=== PATIENT | female | born 1950 | race Caucasian/White ===

== ENCOUNTER 2017-08-29 11:43 | Emergency (ER) | payer MEDICARE ==
[~2017-08-29] VITALS: Ht 157.5 cm; Wt 61.2 kg
[~2017-08-29 11:43] MED LIST: ASPIRIN EC81 MG PO; COQ-1030 MG PO; CYCLOBENZAPRINE10 MG PO; LISINOPRIL10 MG PO; METFORMIN HCL500 MG PO; TOPROL XL25 MG PO; VOLTAREN100 GM TOP
== END 2017-08-29 12:17 | disposition home or self-care (01) ==
LOC: ED 11:43
DX: M79.604 Pain in right leg (principal)

== ENCOUNTER 2017-09-02 07:06 | Emergency (ER) | payer MEDICARE, OTHER ==
[~2017-09-02] VITALS: Ht 157.5 cm; Wt 61.2 kg
[2017-09-02] MEDS ORDERED: MOBIC15 MG PO (07:18)
[2017-09-02] MEDS ORDERED: COUMADIN4 MG PO (07:19)
[2017-09-02] MEDS ORDERED: MORPHINE SULFAT15 MG PO (07:20)
[2017-09-02] MEDS ORDERED: ENDOCET 10-3251 EACH PO (07:20)
[2017-09-02] MEDS ORDERED: VISTARIL25 MG PO (07:21)
== END 2017-09-02 10:28 | disposition home or self-care (01) ==
LOC: ED 07:06
DX: S80.01XA Contusion of right knee, initial encounter (principal); D68.9 Coagulation defect, unspecified; T45.515A Adverse effect of anticoagulants, initial encounter; X58.XXXA Exposure to other specified factors, initial encounter; Z87.891 Personal history of nicotine dependence; Z88.0 Allergy status to penicillin; Z79.82 Long term (current) use of aspirin; Z79.899 Other long term (current) drug therapy; Z79.01 Long term (current) use of anticoagulants
CPT/HCPCS: 36415; 70450; 85610; 99284

== ENCOUNTER 2019-11-23 09:57 | Emergency (ER) | payer MEDICARE ==
[~2019-11-23] VITALS: Ht 157.5 cm; Wt 61.2 kg
--- OUTSIDE RECORDS SUMMARY | ~2019-11-23 | XMS | Encounter Summary ---
Demographics + + + | Address | [address] | | | [place] [address] | + + + | Home Phone | | + + + | Preferred Language | Unknown | + + + | Marital Status | | + + + | Mandaen Affiliation | 1041 | + + + | Race | White | + + + | Ethnic Group | Not or | + + + Author + + + | Author | [facility] | | | and [place] | + + + | Organization | [facility] | | | and [place] | + + + | Address | Unknown | + + + | Phone | Unavailable | + + + Support + + + + + | Name | Relationship | Address | Phone | + + + + + | Chato Rousseau | ECON | [address] | | | | | [place] | | | | | [address] | | + + + + + | Tegan Lim | ECON | [place] | | | | | [address] | | + + + + + Care Team Providers + +------+ + | Care Automotive Glass Installer Name | Role | Phone | + +------+ + | Lauren Moe | PCP | | | PA | | | + +------+ + Reason for Visit + + + | Reason | Comments | + + + | Procedure | Neurotrax | + + + Encounter Details +--------+ + + + + | Date | Type | Department | Care Team | Description | +--------+ + + + + | 01/27/ | Procedure | [facility] | Felton Allen MD | Early onset | | 2019 | visit | [facility] | [address] | Alzheimer's disease | | | | CLINIC [address] | [place] | with behavioral | | | | [address] [place], | [address] | disturbance ([facility]); | | | | [place] [address] | | Memory change | | | | [phone] | | | +--------+ + + + + Social History + +-------+ +--------+ + | Tobacco Use | Types | Packs/Day | Years | Date | | | | | Used | | + +-------+ +--------+ + | Former Smoker | | 0.25 | | Quit: 12/08/2016 | + +-------+ +--------+ + + +---+---+---+ | Smokeless Tobacco: | | | | | Never Used | | | | + +---+---+---+ + + | Comments: in college | + + + + +---------+ + | Alcohol Use | Drinks/Week | oz/Week | Comments | + + +---------+ + | Never | | | Alcoholic | | | | | Drinks/day: rarely | + + +---------+ + + +--------+ + | Physical Activity | Answer | Date Recorded | + +--------+ + | On average, how many days per week do you | 2 days | 01/08/2019 | | engage in moderate to strenuous exercise | | | | (like walking fast, running, jogging, | | | | dancing, swimming, biking, or other | | | | activities that cause a light or heavy | | | | sweat)? | | | + +--------+ + | On average, how many minutes do you engage | 10 min | 01/08/2019 | | in exercise at this level? | | | + +--------+ + + + + + | Stress | Answer | Date Recorded | + + + + | Do you feel stress - tense, restless, | Rather much | 01/08/2019 | | nervous, or anxious, or unable to sleep at | | | | night because your mind is troubled all the | | | | time - these days? | | | + + + + + + + | Sex Assigned at | Date Recorded | | | | + + + | Not on file | | + + + documented as of this encounter Procedure Notes Michael Anaya, CC RIBBON WEAVER - 01/27/2019 10:30 AM PSTAssociated Order(s): NEUROTRAX: COMPUTER IZED NEUROCOGNATIVE TESTINGProcedure(s): NEUROTRAX: COMPUTERIZED NEUROCOGNATIVE TESTINGPre-P rocedure Diagnose(s): Early onset Alzheimer's disease with behavioral disturbance (HCC); Mem ory changeOrdering Provider Dr. Felton Allen Supervising Provider Dr. Felton Allen Interpreting Provider Dr. Felton Allen Testing performed by Michael Anaya CMA Start Time 1009 Stop Time 1109 Duration of Test 60 minutes Ann Rousseau is a 68 y.o. patient who presents for Neurotrax testing. Patient tolerated test with some difficulty. Patient had issues following instructions rega rdless of how I presented them. Neurotrax results given to Dr. Allen for review and follow up. Physician Interpretation: Abnormal Neurotrax testing with Global Cognitive Score of 70.8. Abnormal NeuroTrax Testing showing deficits in: Memory with score of 50 was Abnormal Executive Function with score of 74.9 was Abnormal Attention with score of 68.5 was Abnormal Information Processing Speed with score of 72.9 was Abnormal Visual Spatial Processing with score of 76 was Abnormal Verbal Function with score of 52.6 was Abnormal Motor Skills with score of 100.7was Normal Results demonstrate: Abnormal Neurotrax testing demonstrated moderate diffuse cognitive dysfunction. Clinical c orrelation is indicated. A total time of 15 minutes were spent evaluating and interpreting this test. Treatment plan is as follows: Advised to keep reading newspapers, magazines, perform word find exercises and to perform computer applications such as 7Summits and [employer] games online. Advised to take vitamin E and B complexes. In addition patient admits to history of depres andre with advised counseling and antidepressants. Patient was contacted on January 28, 2019ing the results. Patient/Family communicated unde rstanding of the results and have no further questions. Thank you for allowing us to participate in the care of your patient. Sincerely, Dr. Felton Allen 01/27/19 Neurologist documented in this enc ounter Plan of Treatment +--------+---------+ + + + | Date | Type | Specialty | Care Team | Description | +--------+---------+ + + + | 01/04/ | Office | Neurology | Rosa Maria, | | | 2020 | Visit | | [place], [employer] [employer] [facility] [address] | | | | | [address] [facility], | | | | | | [place] [address] | | | | | | [phone] | | | | | | | | +--------+---------+ + + + documented as of this encounter Procedures + +--------+ + + + | Procedure Name | Priori | Date/Time | Associated Diagnosis | Comments | | | ty | | | | + +--------+ + + + | NEUROTRAX: | Today | 01/27/2019 | Early onset | Results for this | | COMPUTERIZED | | 10:30 AM | Alzheimer's disease | procedure are in the | | NEUROCOGNATIVE | | PST | with behavioral | results section. | | TESTING | | | disturbance (HCC) | | | | | | Memory change | | + +--------+ + + + documented in this encounter Results NEUROTRAX: COMPUTERIZED NEUROCOGNATIVE TESTING (01/27/2019 10:30 AM PST) + + + | Narrative | Performed At | + + + | Felton Allen MD 2019 1:47 PM Ordering Provider | | | Felton Allen Supervising Provider Dr. Felton Allen Interpreting | | | Provider Dr. Felton Allen Testing performed by Michael Anaya CMA | | | Start Time 1009 Stop Time 1109 Duration of Test 60 minutes | | | Ann Rousseau is a 68 y.o. patient who presents for | | | Neurotrax testing. Patient tolerated test with some difficulty. | | | Patient had issues following instructions regardless of how I | | | presented them. Neurotrax results given to Dr. Allen for review and | | | follow up. Physician Interpretation: Abnormal Neurotrax testing | | | with Global Cognitive Score of 70.8. Abnormal NeuroTrax Testing | | | showing deficits in: Memory with score of 50 was Abnormal | | | Executive Function with score of 74.9 was Abnormal Attention with | | | score of 68.5 was Abnormal Information Processing Speed with score of | | | 72.9 was Abnormal Visual Spatial Processing with score of 76 was | | | Abnormal Verbal Function with score of 52.6 was Abnormal Motor | | | Skills with score of 100.7was Normal Results demonstrate: | | | Abnormal Neurotrax testing demonstrated moderate diffuse cognitive | | | dysfunction. Clinical correlation is indicated. A total time of | | | 15 minutes were spent evaluating and interpreting this test. | | | Treatment plan is as follows: Advised to keep reading newspapers, | | | magazines, perform word find exercises and to perform computer | | | applications such as 7Summits and [employer] online. Advised to | | | take vitamin E and B complexes. In addition patient admits to | | | history of depression with advised counseling and antidepressants. | | | Patient was contacted on January 28, 2019ing the results. | | | Patient/Family communicated understanding of the results and have no | | | further questions. Thank you for allowing us to participate in the | | | care of your patient. Sincerely, Dr. Felton Allen 01/27/19 | | | Neurologist | | + + + documented in this encounter Visit Diagnoses + + | Diagnosis | + + | Early onset Alzheimer's disease with behavioral disturbance (HCC) | + + | Memory change Memory loss | + + documented in this encounter"
--- OUTSIDE RECORDS SUMMARY | ~2019-11-23 | XMS | Encounter Summary ---
Demographics + + + | Address | [address] | | | [place] [address] | + + + | Home Phone | | + + + | Preferred Language | Unknown | + + + | Marital Status | | + + + | Mu-Ism Affiliation | 1041 | + + + | Race | White | + + + | Ethnic Group | Not or | + + + Author + + + | Author | [facility] | | | and [place] | + + + | Organization | [facility] | | | and [...] [place] | | | | | [address] | | + + + + + | Tegan Lim | ECON | [place] | | | | | [address] | | + + + + + Care Team Providers + +------+ + | Care Vice President And Portfolio Manager Name | Role | Phone | + +------+ + | Lauren Moe | PCP | | | PA | | | + +------+ + Reason for Visit + +--------+ + | Reason | Onset | Comments | | | Date | | + +--------+ + | Results, Imaging | 01/28/ | | | | 2019 | | + +--------+ + Encounter Details +--------+ + + + + | Date | Type | Department | Care Team | Description | +--------+ + + + + | 01/28/ | Telephone | [facility] | Felton Allen MD | Results, Imaging | | 2019 | | [facility] | [address] | | | | | CLIN[facility] [address] | [place] | | | | | [address] [place], | [address] | | | | | [place] [address] | | | | | | [phone] | | | +--------+ + + + [...] + + documented as of this encounter Miscellaneous Notes Telephone Encounter - Tiffanie Luis - 02/10/2019 11:38 AM PSTPts daughter Tegan is ca lling back for MRI results. She stated she did receive a call for neurotrax results.Electron ically signed by Tiffanie Luis at 02/10/2019 11:39 AM PSTTelephone Encounter - Michael Anaya CC CMA - 02/10/2019 11:29 AM PSTCalled and spoke with Daughter Tegan and provided results from neurotrax testing. Advised her to have her mom continue doing mind exercises w ith reading, and to try mind games like lumosity. Also advised her to have pt take vitamin B complex and vitamin E. Michael Anaya CMA elephone Encou Michael Aguilera CC CMA - 02/10/2019 11:06 AM PSTCalled and left voicemail for Tegan to call back. Michael Anaya CMA elephone Tiffanie Hong - 02/09/2019 12:41 PM PSTErin called back for her moms results. elephone Encounter - Michael Anaya CC CMA - 2019 3:37 PM PSTCalled and left voicemail for Daughter Tor john to call back. Michael Anaya CMA elephone Erick Schmitt - 2019 2:56 PM PSTPlease call the pt's daughter Tegan vela nd give her the results. The pt gets very confused and didn't really understand them. Tegan: [phone] signed by Erick Canseco at 2019 2:58 PM PS TTelephone Encounter - Felton Allen MD - 2019 10:11 AM PSTCalled and gave MRI brain results and advised to keep reading newspapers, magazines, perform word find exercisesElect ronically signed by Felton Allen MD at 2019 10:15 AM PSTdocumented in this encounter Plan of Treatment +--------+---------+ + + + | Date | Type | Specialty | Care Team | Description | +--------+---------+ + + + | 01/04/ | Office | Neurology | Rosa Maria, | | | 2020 | Visit | | [place] [address] | [address] [place], | | | | | | [place] [address] | | | | | | [phone] | | | | | | | | +--------+---------+ + + + documented as of this encounter Visit Diagnoses Not on filedocumented in this encounter"
--- OUTSIDE RECORDS SUMMARY | ~2019-11-23 | XMS | Encounter Summary ---
Demographics + + + | Address | [address] | | | [place] [address] | + + + | Home Phone | | + + + | Preferred Language | Unknown | + + + | Marital Status | | + + + | Christian Affiliation | 1041 | + + + | Race | White | + + + | Ethnic Group | Not or | + + + Author + + + | Author | [facility] | | | and [place] | + + + | Organization | [facility] | | [...] [place] | | | | | [address] | | + + + + + | Tegan Lim | ECON | [place] | | | | | [address] | | + + + + + Care Team Providers + +------+ + | Care Bottling Machine Operator Name | Role | Phone | + +------+ + | Lauren Moe | PCP | | | PA | | | + +------+ + Reason for Visit + +--------+ + | Reason | Onset | Comments | | | Date | | + +--------+ + | Results, Imaging | 02/11/ | | | | 2019 | | + +--------+ + Encounter Details +--------+ + + + + | Date | Type | Department | Care Team | Description | +--------+ + + + + | 02/11/ | Telephone | [facility] | Felton Allen MD | Results, Imaging | | 2019 | | [facility] | [address] | | | | | CLIN[facility] [address] | [place] | | | | | [address] [place], | [address] | | | | | [place] [address] | | | | | | [phone] | | | +--------+ + + + [...] this encounter Miscellaneous Notes Telephone Encounter - Felton Allen MD - 02/11/2019 8:40 AM PSTalled Tegan and could not leave voicemail, however, I did not see in Demographic form ?? documented in this encounter Plan of Treatment +--------+---------+ + + + | Date | Type | Specialty | Care Team | Description | +--------+---------+ + + + | 01/04/ | Office | Neurology | Rosa Maria, | | | 2019 | Visit | | [place] [address] | [address] [place], | | | | | | [place] [address] | | | | | | [phone] | | | | | | | | +--------+---------+ + + + documented as of this encounter Visit Diagnoses Not on filedocumented in this encounter"
--- OUTSIDE RECORDS SUMMARY | ~2019-11-23 | XMS | Clinical Summary ---
Demographics + + + | Address | [address] | | | [place] [address] | + + + | Home Phone | | + + + | Preferred Language | Unknown | + + + | Marital Status | | + + + | Taoist Affiliation | 1041 | + + + | Race | White | + + + | Ethnic Group | Not or | + + + Author + + + | Author | [facility] | | | and [place] | + + + | Organization | [facility] | | | and [...] [place] | | | | | [address] | | + + + + + | Tegan Lim | ECON | [place] | | | | | [address] | | + + + + + Care Team Providers + +------+ + | Care Admission Specialist Name | Role | Phone | + +------+ + | Lauren Moe | PCP | | | PA | | | + +------+ + Allergies No Known Allergies Medications + + + +---------+------+------+-------+ | Medication | Sig | Dispensed | Refills | Star | End | Statu | | | | | | t | Date | s | | | | | | Date | | | + + + +---------+------+------+-------+ | aspirin 325 mg | Take 325 mg by mouth | | 0 | 01/0 | | Activ | | tablet | 2 (two) times | | | 4/20 | | e | | | daily. | | | 14 | | | + + + +---------+------+------+-------+ | VITAMIN D, | Take by mouth. | | 0 | | | Activ | | CHOLECALCIFEROL, PO | | | | | | e | + + + +---------+------+------+-------+ | atorvaSTATin | Take 20 mg by mouth | | 0 | | | Activ | | (LIPITOR) 20 mg | nightly. | | | | | e | | tablet | | | | | | | + + + +---------+------+------+-------+ | metoprolol | Take 50 mg by mouth | | 0 | 04/2 | | Activ | | succinate | Daily. | | | 03/16 | | e | | (TOPROL-XL) 50 mg 24 | | | | 20 | | | | hr tablet | | | | | | | + + + +---------+------+------+-------+ | mirtazapine | TAKE 1 TABLET BY | | 0 | 07/26 | | Activ | | (REMERON) 30 mg | MOUTH ONCE DAILY | | | 10/14 | | e | | tablet | (REPLACE 15 MG) | | | 20 | | | + + + +---------+------+------+-------+ | donepezil | Take 1 tablet by | 30 | 5 | / | | Activ | | (ARICEPT) 10 MG | mouth nightly. | tablet | | 04/16 | | e | | tabletIndications: | | | | 20 | | | | Early onset | | | | | | | | Alzheimer's disease | | | | | | | | with behavioral | | | | | | | | disturbance (HCC) | | | | | | | + + + +---------+------+------+-------+ Active Problems + + + | Problem | Noted Date | + + + | Early onset Alzheimer's disease with behavioral disturbance | 09/16/2019 | + + + + + | Overview: Current Treatment: Aricept 01/08/19 MMSE: | | 01/27/19 MRI of Brain: No acute intracranial process. | | Global volume loss. Moderate white matter changes. Differential | | would include chronic small vessel ischemia, demyelinating | | disease and vasculitis 01/27/19 Neuro Trax: Global Cognitive | | Score of 70.8. Abnormal NeuroTrax Testing showing deficits in: | | Memory with score of 50 was Abnormal Executive Function with | | score of 74.9 was Abnormal Attention with score of 68.5 was | | Abnormal Information Processing Speed with score of 72.9 was | | Abnormal Visual Spatial Processing with score of 76 was Abnormal | | Verbal Function with score of 52.6 was Abnormal Motor Skills with | | score of 100.7was Normal 01/27/19 EEG: Normal awake and | | drowsy EEG. 09/16/19 MMSE: | | 09/16/19 MMSE: | + + + + + | Old myocardial infarction | 01/08/2019 | + + + + + | Overview: HUMBERTO x 2 - 06/30/07 - Luis guo // | | 11/25/07 (ISR in RCA) | + + + + + | Osteoarthritis of both knees | 01/08/2019 | + + + | Coronary atherosclerosis of holy cross coronary artery | 02/28/2013 | + + + | Dizziness and giddiness | 02/28/2013 | + + + | Other and unspecified hyperlipidemia | 02/28/2013 | + + + | Encounter for long-term (current) use of other medications | 02/28/2013 | + + + | Coronary atherosclerosis of holy cross coronary artery | 02/28/2013 | + + + | Other and unspecified hyperlipidemia | 02/28/2013 | + + + | S/P drug eluting coronary stent placement | 06/30/2007 | + + + + + | Overview: primary PCI for NSTEMI, 3.0x23 Janna ELOISA in Ramus | | Intermedius | + + + + + | S/P drug eluting coronary stent placement | 06/30/2007 | + + + + + | Overview: primary PCI for NSTEMI, 3.0x23 Cypher ELOISA in Ramus | | Intermedius | + + + +---+ | Presence of drug-eluting stent in right coronary artery | | + +---+ + + | Overview: 11/25/07 - for NSTEMI, ISR: 3.0x20 Taxus ELOISA; | | 07/08/07 - 3 overlapping Cypher ELOISA (3.0x13, 2.5x28, 2.5x28) | + + + +---+ | Old myocardial infarction | | + +---+ + + | Overview: HUMBERTO x 2 - 06/30/07 - Luis guo // | | 11/25/07 (ISR in RCA) | + + + +---+ | Osteoarthritis of both knees | | + +---+ Encounters +--------+---------+ + + + | Date | Type | Specialty | Care Team | Description | +--------+---------+ + + + | 07/22/ | Office | Neurology | Rosa Maria, | Early onset | | 2020 | Visit | | [place] | Alzheimer's disease | | | | | | with behavioral | | | | | | disturbance (HCC) | +--------+---------+ + + + from Last 3 Months Family History Patient is adopted + + +------+ + | Medical History | Relation | Name | Comments | + + +------+ + | Drug abuse | Brother | | | + + +------+ + + +------+ + + | Relation | Name | Status | Comments | + +------+ + + | Brother | | | | + +------+ + + | Brother | | | | + +------+ + + | Daughter | | Alive | | + +------+ + + | Father | | | | + +------+ + + | Mother | | | | + +------+ + + | Sister | | | | + +------+ + + | Sister | | | | + +------+ + + | Sister | | Alive | | + +------+ + + | Son | | Alive | | + +------+ + + Social History + +-------+ +--------+ + | Tobacco Use | Types | Packs/Day | Years | Date | | | | | Used | | + +-------+ +--------+ + | Former Smoker | | 0.25 | 20 | Quit: 12/08/2016 | + +-------+ +--------+ [...] on file | | + + + Last Filed Vital Signs + + + + + | Vital Sign | Reading | Time Taken | Comments | + + + + + | Blood Pressure | 174/95 | 09/16/2019 8:34 AM | | | | | PDT | | + + + + + | Pulse | 65 | 09/16/2019 8:34 AM | | | | | PDT | | + + + + + | Temperature | 36.5 C (97.7 F) | 09/16/2019 8:34 AM | | | | | PDT | | + + + + + | Respiratory Rate | 16 | 09/16/2019 8:34 AM | | | | | PDT | | + + + + + | Oxygen Saturation | 99% | 09/16/2019 8:34 AM | | | | | PDT | | + + + + + | Inhaled Oxygen | - | - | | | Concentration | | | | + + + + + | Weight | 67.6 kg (149 lb) | 09/16/2019 8:34 AM | | | | | PDT | | + + + + + | Height | 157.5 cm (5' 2") | 09/16/2019 8:34 AM | | | | | PDT | | + + + + + | Body Mass Index | 27.25 | 09/16/2019 8:34 AM | | | | | PDT | | + + + + + Plan of Treatment +--------+---------+ + + + | Date | Type | Specialty | Care Team | Description | +--------+---------+ + + + | 01/04/ | Office | Neurology | Rosa Maria, | | | 2020 | Visit | | [place], [facility] [address] | | | | | [address] [facility], | | | | | | [place] [address] | | | | | | [phone] | | | | | | | | +--------+---------+ + + + + + + + + | Health Maintenance | Due Date | Last | Comments | | | | Done | | + + + + + | Hepatitis C | | | | | Screening | 1 | | | + + + + + | Vaccine: | | | | | Dtap/Tdap/Td (1 - | 0 | | | | Tdap) | | | | + + + + + | Colorectal Cancer | | | | | Screening | 1 | | | | (Colonoscopy) | | | | + + + + + | Vaccine: Zoster (1 | | | | | of 2) | 1 | | | + + + + + | Breast Cancer | | | | | Screening | 6 | | | + + + + + | Vaccine: | | | | | Pneumococcal 65+ (1 | 6 | | | | of 1 - PPSV23) | | | | + + + + + | Adult Annual | | | | | Wellness Visit | 9 | | | + + + + + | Statin Therapy | | | | | (optimal intensity) | 9 | | | + + + + + | Vaccine: Influenza | | 01/15/20 | | | (#1) | 0 | 17, | | | | | 02/13/20 | | | | | 09 | | + + + + + Results Not on filefrom Last 3 Months Insurance + +--------+ +--------+ +---------+--------+ | Payer | Benefi | Subscriber | Effect | Phone | Address | Type | | | t Plan | ID | vinayak | | | | | | / | | Dates | | | | | | Group | | | | | | + +--------+ +--------+ +---------+--------+ | MEDICARE | MEDICA | [id number] | | [phone] | | Medica | | | RE | | 016-Pr | 5 | | re | | | PART A | | esent | | | | | | AND B | | | | | | + +--------+ +--------+ +---------+--------+ | AARP | AARP | [id number] | 02/25/19 | [phone] | | Indemn | | | MDCR | | 19-Pre | 0 | | ity | | | SUPPL | | sent | | | | + +--------+ +--------+ +---------+--------+ + +--------+ +--------+ + + | Guarantor Name | Accoun | Relation to | Date | Phone | Billing Address | | | t Type | Patient | of | | | | | | | | | | + +--------+ +--------+ + + | Ann Rousseau | Person | Self [birth year] | [address] | | [place] | al/Fam | | 1949 | [phone] | [place] | | | [place] | | | [address] (Home) | [address] | + +--------+ +--------+ + + Advance Directives + + + + + | Type | Date Recorded | Patient | Explanation | | | | Soup Mixer | | + + + + + | Power of | | | | | Seat Cover Cutter | | | | + + + + + | Advance | | | | | Directive | | | | + + + + +
--- OUTSIDE RECORDS SUMMARY | ~2019-11-23 | XMS | Encounter Summary ---
Demographics + + + | Address | [address] | | | [place] [address] | + + + | Home Phone | | + + + | Preferred Language | Unknown | + + + | Marital Status | | + + + | Anabaptist Affiliation | 1041 | + + + | Race | White | + + + | Ethnic Group | Not or | + + + Author + + + | Author | [facility] | | | and [place] | + + + | Organization | [facility] | | | [...] [place] | | | | | [address] | | + + + + + | Tegan Lim | ECON | [place] | | | | | [address] | | + + + + + Care Team Providers + +------+ + | Care Thermal Cutter Helper Name | Role | Phone | + +------+ + | Lauren Moe | PCP | | | PA | | | + +------+ + Encounter Details +--------+ + + + + | Date | Type | Department | Care Team | Description | +--------+ + + + + | 07/18/ | Orders Only | [facility] | Conversion | | | 2018 | | CONVERSION [address] | Transaction, | | | | | [address] | Provider Unknown | | | | | [place], [place] | [phone] | | | | | [address] | | | | | | [phone] | | | +--------+ + + + + Social History + +-------+ +--------+------+ | Tobacco Use | Types | Packs/Day | Years | Date | | | | | Used | | + +-------+ +--------+------+ | Former Smoker | | 0.25 | | | + +-------+ +--------+------+ + + | Comments: in college | + + + + + | Sex Assigned at | Date Recorded | | | | + + + | Not on file | | + + + documented as of this encounter Plan of Treatment +--------+---------+ + + + | Date | Type | Specialty | Care Team | Description | +--------+---------+ + + + | 01/04/ | Office | Neurology | Rosa Maria, | | | 2020 | Visit | | [address] [address] [place], | | | | | | [place] [address] | | | | | | [phone] | | | | | | | | +--------+---------+ + + + documented as of this encounter Visit Diagnoses Not on filedocumented in this encounter"
--- OUTSIDE RECORDS SUMMARY | ~2019-11-23 | XMS | Encounter Summary ---
Demographics + + + | Address | [address] | | | [place] [address] | + + + | Home Phone | | + + + | Preferred Language | Unknown | + + + | Marital Status | | + + + | Gnosticist Affiliation | 1041 | + + + | Race | White | + + + | Ethnic Group | Not or | + + + Author + + + | Author | [facility] | | | and [place] | + + + | Organization | [facility] | | | [...] [place] | | | | | [address] | | + + + + + | Tegan Lim | ECON | [place] | | | | | [address] | | + + + + + Care Team Providers + +------+ + | Care Link Knitting Machine Operator Name | Role | Phone | + +------+ + | Lauren Moe | PCP | | | PA | | | + +------+ + Encounter Details +--------+ + + + + | Date | Type | Department | Care Team | Description | +--------+ + + + + | 02/28/ | Orders Only | [facility] | Conversion | | | 2013 | | CONVERSION DEP [address] | Transaction, | | | | | [address] | Provider Unknown | | | | | [place], [place] | [phone] | | | | | [address] | | | | | | [phone] | | | +--------+ + + + + Social History + +-------+ +--------+------+ | Tobacco Use | Types | Packs/Day | Years | Date | | | | | Used | | + +-------+ +--------+------+ | Never Assessed | | | | | + +-------+ +--------+------+ + + + | Sex Assigned at [...] | | | | | | [place] [address] | | | | | | [phone] | | | | | | | | +--------+---------+ + + + documented as of this encounter Visit Diagnoses Not on filedocumented in this encounter"
--- OUTSIDE RECORDS SUMMARY | ~2019-11-23 | XMS | Encounter Summary ---
Demographics + + + | Address | [address] | | | [place] [address] | + + + | Home Phone | | + + + | Preferred Language | Unknown | + + + | Marital Status | | + + + | Scientology Affiliation | 1041 | + + + | Race | White | + + + | Ethnic Group | Not or | + + + Author + + + | Author | [facility] | | | and [place] | + + + | Organization | [facility] | [...] [place] | | | | | [address] | | + + + + + | Tegan Lim | ECON | [place] | | | | | [address] | | + + + + + Care Team Providers + +------+ + | Care Sap Bw Consultant Name | Role | Phone | + +------+ + | Lauren Moe | PCP | | | PA | | | + +------+ + Encounter Details +--------+ + + + + | Date | Type | Department | Care Team | Description | +--------+ + + + + | 01/08/ | Orders Only | [facility] | Felton Allen MD | Dementia with | | 2019 | | HOSPITAL NEUROLOGY | [address] | behavioral | | | | CLINIC [address] | [place], [place] | disturbance, | | | | [address] [place], | [address] | unspecified dementia | | | | [place] [address] | | type (HCC) (Primary | | | | [phone] | | Dx) | +--------+ + + + + Social [...] | | 2019 | Visit | | [place], MOLECULAR GENETICIST [address] | | | | | | [address] [facility] [place], | | | | | | [place] [address] | | | | | | [phone] | | | | | | | | +--------+---------+ + + + + +------+--------+ + + | Name | Type | Priori | Associated Diagnoses | Order Schedule | | | | ty | | | + +------+--------+ + + | Basic Metabolic | Lab | Routin | Dementia with | 1 Occurrences | | Panel | | e | behavioral | starting 01/08/2019 | | | | | disturbance, | until 01/09/2020 | | | | | unspecified dementia | | | | | | type (HCC) | | + +------+--------+ + + documented as of this encounter Procedures + +--------+ + + + | Procedure Name | Priori | Date/Time | Associated Diagnosis | Comments | | | ty | | | | + +--------+ + + + | BASIC METABOLIC | Routin | 01/26/2019 | | Results for this | | PANEL | e | 11:03 AM | | procedure are in the | | | | PST | | results section. | + +--------+ + + + documented in this encounter Results Basic Metabolic Panel (01/26/2019 11:03 AM PST) + + + + + + | Component | Value | Ref Range | Performed | Pathologist | | | | | At | Signature | + + + + + + | Sodium | 143 | 132 - 143 | REFERENCE | | | | | | LAB | | | | | | [facility] | | | | | | [facility] | | + + + + + + | Potassium | 4.0 | 3.6 - 5.1 | REFERENCE | | | | | | LAB | | | | | | [facility] | | | | | | [facility] | | + + + + + + | Chloride | 109 | 95 - 112 | REFERENCE | | | | | | LAB | | | | | | [facility] | | | | | | [facility] | | + + + + + + | Carbon | 27 | 19 - 31 | REFERENCE | | | dioxide | | | LAB | | | | | | [facility] | | | | | | [facility] | | + + + + + + | Anion Gap | 11.0 | 7 - 21 | REFERENCE | | | | | | LAB | | | | | | [facility] | | | | | | [facility] | | + + + + + + | Glucose | 121 (H) | 70 - 100 | REFERENCE | | | | | | LAB | | | | | | [facility] | | | | | | [facility] | | + + + + + + | Calcium | 9.4 | 8.5 - 10.3 | REFERENCE | | | | | | LAB | | | | | | [facility] | | | | | | [facility] | | + + + + + + | BUN | 18 | 6 - 23 | REFERENCE | | | | | | LAB | | | | | | [facility] | | | | | | [facility] | | + + + + + + | Creatinine | 0.82 | 0.70 - 1.25 | REFERENCE | | | | | | LAB | | | | | | [facility] | | | | | | [facility] | | + + + + + + | GFR | 70 | | REFERENCE | | | ESTIMATE | | | LAB | | | (REF) | | | [facility] | | | | | | [facility] | | + + + + + + | BUN/Creatin | 22.0Comment: | 6.0 - 28.6 | REFERENCE | | | ine Ratio | ESTIMATED GFR Reference | | LAB | | | | Range:GFR = Less than | | [facility] - | | | | 60: Chronic Kidney | | [facility] | | | | Disease, if found over a | | | | | | 3 month period.GFR = | | | | | | Less than 15: Kidney | | | | | | Failure.For | | | | | | Americans, multiply the | | | | | | calculated GFR by | | | | | | 1.21.GFR calculation is | | | | | | not valid for patients | | | | | | under age 18 years.For | | | | | | patients over age 70 | | | | | | please interpret results | | | | | | with caution as results | | | | | | have not been validated | | | | | | for this calculation | | | | | | method Please Note: | | | | | | Calcium reference range | | | | | | change as of 09/12/2017. | | | | + + + + + + + + | Specimen | + + | | + + + + + | Narrative | Performed At | + + + | Testing Performed at: [facility] CLIA: [id number] - [address] | REFERENCE LAB | | [place] [address] | [facility] | | | [facility] | + + + + + + + + | Performing | Address | City/State/Zipcode | Phone Number | | Organization | | | | + + + + + | REFERENCE LAB | [address] [facility] | [place] | [phone] | | [facility] | | [address] | | + + + + + documented in this encounter Visit Diagnoses + + | Diagnosis | + + | Dementia with behavioral disturbance, unspecified dementia type (HCC) - Primary | + + documented in this encounter"
--- OUTSIDE RECORDS SUMMARY | ~2019-11-23 | XMS | Encounter Summary ---
Demographics + + + | Address | [address] | | | [place] [address] | + + + | Home Phone | | + + + | Preferred Language | Unknown | + + + | Marital Status | | + + + | Scientology Affiliation | 1041 | + + + | Race | White | + + + | Ethnic Group | Not or | + + + Author + + + | Author | [facility] | | | and [place] | + + + | Organization | [facility] | | | and [place] | + + + | Address | Unknown | + + + | Phone | Unavailable | + + + Support + + + + + | Name | Relationship | Address | Phone | + + + + + | Chato Rousseau | ECON | [address] | | | | | [place] | | | | | [address] | | + + + + + | Tegan Lim | ECON | [place] | | | | | [address] | | + + + + + Care Team Providers + +------+ + | Care Tractor Trailer Mechanic Name | Role | Phone | + +------+ + | Lauren Moe | PCP | | | PA | | | + +------+ + Encounter Details +--------+ + + + + | Date | Type | Department | Care Team | Description | +--------+ + + + + | 01/27/ | Hospital | [facility] | Felton Allen MD | Early onset | | 2019 | Encounter | HOSPITAL RESPIRATORY | [address] | Alzheimer's disease | | | | THERAPY [address] | [place] | with behavioral | | | | [place] | [address] | disturbance (HCC); | | | | [address] | | Memory change; | | | | [phone] | | Dizziness | +--------+ + + + + Social [...] + + documented as of this encounter Medications at Time of Discharge + + + +---------+ + + | Medication | Sig | Dispensed | Refills | Start | End Date | | | | | | Date | | + + + +---------+ + + | aspirin 325 mg | Take 325 mg by mouth | | 0 | 02/28/19 | | | tablet | 2 (two) times | | | 14 | | | | daily. | | | | | + + + +---------+ + + | atorvaSTATin | Take 20 mg by mouth | | 0 | | | | (LIPITOR) 20 mg | nightly. | | | | | | tablet | | | | | | + + + +---------+ + + | VITAMIN D, | Take by mouth. | | 0 | | | | CHOLECALCIFEROL, PO | | | | | | + + + +---------+ + + | donepezil | Take 0.5 tablets by | 30 | 5 | 01/09/20 | | | (ARICEPT) 10 MG | mouth nightly for 30 | tablet | | 19 | 0 | | tablet | days. | | | | | + + + +---------+ + + | metoprolol | Take 50 mg by mouth | | 0 | 07/19/19 | | | tartrate (LOPRESSOR) | 2 (two) times daily. | | | 18 | 0 | | 50 mg tablet | 3-4 x per week | | | | | + + + +---------+ + + | mirtazapine | Take 15 mg by mouth | | 0 | | | | (REMERON) 15 MG | nightly. | | | | 0 | | tablet | | | | | | + + + +---------+ + + documented as of this encounter Progress Notes Ralph Easton RRT - 01/27/2019 1:00 PM PSTAwake and drowsy EEG performed, patient yen ated study well. docum ented in this encounter Procedure Morenita Narvaez MD - 01/27/2019 1:00 PM PSTAssociated Order(s): EEGProcedure(s): EEGP re-Procedure Diagnose(s): Early onset Alzheimer's disease with behavioral disturbance (HCC); Memory change; DizzinessName:Ann [place] :1950 DATE OF SERVICE: 01/27/2019 STUDY: ELECTROENCEPHALOGRAM INTRODUCTION: This is a digital EEG recording with a record length of 20 minutes. The pat dagoberto is a 68 y.o. year-old female with dementia and dizziness. BACKGROUND RHYTHM: The patient has a well defined background pattern of 9 Hz. This activi ty is more prominent posteriorly, symmetrical, and synchronous. It attenuates with eye open ing and returns with eye closing. Drowsiness is appreciated by the attenuation and slowing of the patient's background activities. ABNORMAL POTENTIALS: No focal slow waves or epileptiform discharges are seen. HYPERVENTILATION/PHOTIC STIMULATION: Hyperventilation was not performed. Photic stimulati on was without significant effect. IMPRESSION: Normal awake and drowsy EEG. Thank you for the opportunity to participate in the care of this patient. Morenita Jackman MD01/27/20192:58 PM documented in thi s encounter Plan of Treatment +--------+---------+ + + + | Date | Type | Specialty | Care Team | Description | +--------+---------+ + + + | 01/04/ | Office | Neurology | Rosa Maria, | | | 2019 | Visit | | [place] [address] | | | | [address] [place], | | | | | | [place] [address] | | | | | | [phone] | | | | | | | | +--------+---------+ + + + documented as of this encounter Procedures + +--------+ + + + | Procedure Name | Priori | Date/Time | Associated Diagnosis | Comments | | | ty | | | | + +--------+ + + + | EEG | Routin | 01/27/2019 | Early onset | Results for this | | | e | 1:00 PM | Alzheimer's disease | procedure are in the | | | | PST | with behavioral | results section. | | | | | disturbance (HCC) | | | | | | Memory change | | | | | | Dizziness | | + +--------+ + + + documented in this encounter Results EEG (01/27/2019 1:00 PM PST) + + + | Narrative | Performed At | + + + | Morenita Jackman MD 01/27/2019 2:59 PM Name:Ann Acevedo | | | [place] :1950 DATE OF SERVICE: 01/27/2019 | | | STUDY: ELECTROENCEPHALOGRAM INTRODUCTION: This is a | | | digital EEG recording with a record length of 20 minutes. The | | | patient is a 68 y.o. year-old female with dementia and dizziness. | | | BACKGROUND RHYTHM: The patient has a well defined background | | | pattern of 9 Hz. This activity is more prominent posteriorly, | | | symmetrical, and synchronous. It attenuates with eye opening and | | | returns with eye closing. Drowsiness is appreciated by the | | | attenuation and slowing of the patient's background activities. | | | ABNORMAL POTENTIALS: No focal slow waves or epileptiform | | | discharges are seen. HYPERVENTILATION/PHOTIC STIMULATION: | | | Hyperventilation was not performed. Photic stimulation was | | | without significant effect. IMPRESSION: Normal awake and drowsy | | | EEG. Thank you for the opportunity to participate in the care of | | | this patient. Morenita Jackman MD01/27/20192:58 PM | | | Electronically signed | | + + + documented in this encounter Visit Diagnoses + + | Diagnosis | + + | Early onset Alzheimer's disease with behavioral disturbance (HCC) | + + | Memory change Memory loss | + + | Dizziness Dizziness and giddiness | + + documented in this encounter"
--- OUTSIDE RECORDS SUMMARY | ~2019-11-23 | XMS | Encounter Summary ---
Demographics + + + | Address | [address] | | | [place] [address] | + + + | Home Phone | | + + + | Preferred Language | Unknown | + + + | Marital Status | | + + + | Judaism Affiliation | 1041 | + + + | Race | White | + + + | Ethnic Group | Not or | + + + Author + + + | Author | [facility] | | | and [place] | + + + | Organization | [facility] | | | and [...] [place] | | | | | [address] | | + + + + + | Tegan Lim | ECON | [place] | | | | | [address] | | + + + + + Care Team Providers + +------+ + | Care Center Consultant Name | Role | Phone | + +------+ + | Lauren Moe | PCP | | | PA | | | + +------+ + Reason for Referral Diagnostic/Screening (Routine) +--------+--------+ + + + + | Status | Reason | Specialty | Diagnoses / | Referred By | Referred To | | | | | Procedures | Contact | Contact | +--------+--------+ + + + + | Closed | | Radiology | Diagnoses | Allen, | Cc Wgr Mri | | | | | Early onset | Felton Rudolph, | [address] | | | | | Alzheimer's | MD [address] | [place] | | | | | disease | [address], | [place], [place] | | | | | with | [place] | [address] | | | | | behavioral | [place], [place] | Phone: | | | | | disturbance | [address] | [phone] | | | | | (HCC) | Phone: | Fax: | | | | | Memory | [phone] | [phone] | | | | | change | Fax: | | | | | | Dizziness | [phone] | | | | | | Procedures | | | | | | | MRI Brain w | | | | | | | wo Contrast | | | +--------+--------+ + + + + Reason for Visit Diagnostic/Screening (Routine) +--------+--------+ + + + + | Status | Reason | Specialty | Diagnoses / | Referred By | Referred To | | | | | Procedures | Contact | Contact | +--------+--------+ + + + + | Closed | | Radiology | Diagnoses | Allen, | Cc Wgr Mri | | | | | Early onset | Felton Rudolph, | [address] | | | | | Alzheimer's | MD [address] | [address] [place] | | | | | disease | [address], | [place], [place] | | | | | with | [place] | [address] | | | | | behavioral | [place], [place] | Phone: | | | | | disturbance | [address] | [phone] | | | | | (HCC) | Phone: | Fax: | | | | | Memory | [phone] | [phone] | | | | | change | Fax: | | | | | | Dizziness | [phone] | | | | | | Procedures | | | | | | | MRI Brain w | | | | | | | wo Contrast | | | +--------+--------+ + + + + Encounter Details +--------+ + + + + | Date | Type | Department | Care Team | Description | +--------+ + + + + | 01/27/ | Hospital | [facility] | Felton Allen MD | Early onset | | 2019 | Encounter | Hospital MRI [address] | [address] | Alzheimer's disease | | | | [address] | [place] | with behavioral | | | | [place], [place] | [address] | disturbance (HCC); | | | | [address] | | Memory change; | | | | [phone] | | Dizziness | +--------+ + + [...] | | | | | | [address] [facility], | | | | | | [place] [address] | | | | | | [phone] | | | | | | | | +--------+---------+ + + + documented as of this encounter Procedures + +--------+ + + + | Procedure Name | Priori | Date/Time | Associated Diagnosis | Comments | | | ty | | | | + +--------+ + + + | MRI BRAIN W WO | Routin | 01/27/2019 | Early onset | Results for this | | CONTRAST | e | 9:34 AM | Alzheimer's disease | procedure are in the | | | | PST | with behavioral | results section. | | | | | disturbance (HCC) | | | | | | Memory change | | | | | | Dizziness | | + +--------+ + + + documented in this encounter Results MRI Brain w wo Contrast (01/27/2019 9:34 AM PST) + + | Specimen | + + | | + + + + + | Impressions | Performed At | + + + | 1. No acute intracranial process. 2. Global volume loss. 3. | [facility] | | Moderate white matter changes. Differential would include chronic | | | small vessel ischemia, demyelinating disease and vasculitis. | | | Dictated by: Gabo Rubin | | + + + + + + | Narrative | Performed At | + + + | EXAMINATION: MRI BRAIN W WO CONTRAST HISTORY: Dizziness, | [facility] | | persistent/recurrent, cardiac or vascular cause suspected | | | COMPARISON STUDY: None TECHNIQUE: Multiplanar multi sequence MRI | | | of the brain is performed without and with contrast. 5 mL Gadavist | | | was injected intravenously without post contrast reaction. | | | FINDINGS: Diffusion-weighted images show no evidence of restricted | | | diffusion. The mathis-white matter interface is intact. No acute | | | intracranial hemorrhage, mass lesion, or midline shift. No abnormal | | | enhancement. Basilar cisterns are patent. Ventricles are | | | symmetrically prominent. Mild cerebellar volume loss. Sulci are | | | prominent, especially at the vertex. Major flow voids are present. | | | Confluent periventricular white matter T2 hyperintensity. There are | | | scattered punctate deep and subcortical white matter hyperintensities | | | Paranasal sinuses and mastoid air cells are clear. No focal | | | pituitary abnormality is identified. Corpus callosum is unremarkable. | | | Brainstem is unremarkable. | | + + + + + | Procedure Note | + + | Walter, Rad Results In - 01/27/2019 9:43 AM PST EXAMINATION:MRI BRAIN W WO | | CONTRASTHISTORY:Dizziness, persistent/recurrent, cardiac or vascular cause | | suspectedCOMPARISON STUDY:NoneTECHNIQUE:Multiplanar multi sequence MRI of the brain is | | performed without and with contrast. 5 mL Gadavist was injected intravenously without | | post contrast reaction.FINDINGS:Diffusion-weighted images show no evidence of restricted | | diffusion.The mathis-white matter interface is intact.No acute intracranial hemorrhage, | | mass lesion, or midline shift.No abnormal enhancement.Basilar cisterns are | | patent.Ventricles are symmetrically prominent.Mild cerebellar volume loss.Sulci are | | prominent, especially at the vertex.Major flow voids are present.Confluent | | periventricular white matter T2 hyperintensity. There are scattered punctate deep and | | subcortical white matter hyperintensitiesParanasal sinuses and mastoid air cells are | | clear.No focal pituitary abnormality is identified.Corpus callosum is | | unremarkable.Brainstem is unremarkable.IMPRESSION: 1. No acute intracranial process.2. | | Global volume loss.3. Moderate white matter changes. Differential would include chronic | | small vessel ischemia, demyelinating disease and vasculitis.Dictated by: Gabo | | Charlieectronically Signed by: Gabo Rubin on 01/27/2019 9:39 AM | |No abnormal enhancement. | |Basilar cisterns are patent. | |Ventricles are symmetrically prominent. | |Mild cerebellar volume loss. | |Sulci are prominent, especially at the vertex. | |Major flow voids are present. | |Confluent periventricular white matter T2 hyperintensity. There are scattered punctate héctor p and subcortical white matter hyperintensities | |Paranasal sinuses and mastoid air cells are clear. | |No focal pituitary abnormality is identified. | |Corpus callosum is unremarkable. | |Brainstem is unremarkable. | | | |IMPRESSION: | |1. No acute intracranial process. | |2. Global volume loss. | |3. Moderate white matter changes. Differential would include chronic small vessel ischemia , demyelinating disease and vasculitis. | | | |Dictated by: Gabo Rubin | | | | | + + + +---------+ + + | Performing | Address | City/State/Zipcode | Phone Number | | Organization | | | | + +---------+ + + | [facility] | | | | + +---------+ + + documented in this encounter Visit Diagnoses + + | Diagnosis | + + | Early onset Alzheimer's disease with behavioral disturbance (HCC) | + + | Memory change Memory loss | + + | Dizziness Dizziness and giddiness | + + documented in this encounter Administered Medications + +--------+ +-------+------+------+ | Medication Order | MAR | Action | Dose | Rate | Site | | | Action | Date | | | | + +--------+ +-------+------+------+ | gadobutrol (GADAVIST) injection | Given | 01/28/20 | 5 mLs | | | | 5 mL 5 mL, Intravenous, ONCE | | 19 9:16 | | | | | ALLISONN, Other, Starting 01/27/19 | | AM PST | | | | | at 0916, For 1 dose, MRI | | | | | | + +--------+ +-------+------+------+ +---+---+ | | | +---+---+ documented in this encounter"
--- OUTSIDE RECORDS SUMMARY | ~2019-11-23 | XMS | Encounter Summary ---
Demographics + + + | Address | [address] | | | [place] [address] | + + + | Home Phone | | + + + | Preferred Language | Unknown | + + + | Marital Status | | + + + | Scientologist Affiliation | 1041 | + + + | Race | White | + + + | Ethnic Group | Not or | + + + Author + + + | Author | [facility] | | | and [place] | + + + | Organization | [facility] | | | [...] [place] | | | | | [address] | | + + + + + | Tegan Lim | ECON | [place] | | | | | [address] | | + + + + + Care Team Providers + +------+ + | Care Call Specialist Name | Role | Phone | + +------+ + PCP | Unavailable | + +------+ + Encounter Details +--------+ + + + + | Date | Type | Department | Care Team | Description | +--------+ + + + + | 07/07/ | Hospital | [facility] | nIdra Ascencio MD | Coronary | | 2007 - | [facility] | | Atherosclerosis of | | | | CLINICAL DECISION | | [place]kofski Coronary | | 07/08/ | | [address] | | Artery | | 2007 | | [place], [place] | | | | | | [address] | | | | | | [phone] | | | +--------+ + + + [...] | | | | [facility] | | | | | | [place] [address] | | | | | | [phone] | | | | | | | | +--------+---------+ + + + documented as of this encounter Visit Diagnoses + + | Diagnosis | + + | Coronary atherosclerosis of blackfeet coronary artery | + + documented in this encounter"
--- OUTSIDE RECORDS SUMMARY | ~2019-11-23 | XMS | Encounter Summary ---
Demographics + + + | Address | [address] | | | [place] [address] | + + + | Home Phone | | + + + | Preferred Language | Unknown | + + + | Marital Status | | + + + | Anabaptism Affiliation | 1041 | + + + | Race | White | + + + | Ethnic Group | Not or | + + + Author + + + | Author | [facility] | | | and [place] | + + + | Organization | [facility] | | | and [...] [place] | | | | | [address] | | + + + + + | Tegan Lim | ECON | [place] | | | | | [address] | | + + + + + Care Team Providers + +------+ + | Care Char Filter Tank Tender Head Name | Role | Phone | + +------+ + PCP | Unavailable | + +------+ + Encounter Details +--------+ + + + + | Date | Type | Department | Care Team | Description | +--------+ + + + + | 06/28/ | Hospital | [facility] | Payam Crespo MD | Unspecified Chest | | 2007 - | Encounter | [facility] | [address] | Pain | | | | CARE FLO[address] | [address] | | | 06/30/ | | [address] | [place], [place] | | | 2007 | | [place], [place] | [address] | | | | | [address] | [phone] | | | | | [phone] | | | +--------+ + + + [...] | | 2020 | Visit | | [address] | | | | [address] [place], | | | | | | [place] [address] | | | | | | [phone] | | | | | | | | +--------+---------+ + + + documented as of this encounter Visit Diagnoses + + | Diagnosis | + + | Chest pain, unspecified | + + documented in this encounter"
--- OUTSIDE RECORDS SUMMARY | ~2019-11-23 | XMS | Encounter Summary ---
Demographics + + + | Address | [address] | | | [place] [address] | + + + | Home Phone | | + + + | Preferred Language | Unknown | + + + | Marital Status | | + + + | Latter Day Affiliation | 1041 | + + + | Race | White | + + + | Ethnic Group | Not or | + + + Author + + + | Author | [facility] | | | and [place] | + + + | Organization | [facility] | | | and [...] [place] | | | | | [address] | | + + + + + | Tegan Lim | ECON | [place] | | | | | [address] | | + + + + + Care Team Providers + +------+ + | Care Psychiatry Instructor Name | Role | Phone | + +------+ + | Lauren Moe | PCP | | | PA | | | + +------+ + Reason for Referral Self-referral (Routine) +--------+ + + + + + | Status | Reason | Specialty | Diagnoses / | Referred By | Referred To | | | | | Procedures | Contact | Contact | +--------+ + + + + + | Closed | Specialty | Speech | Diagnoses | Alejandro, | [facility] | | | Services | Pathology | Early onset | Felton R, | HOSPITAL | | | Required | | Alzheimer's | [address] | PHYSICAL | | | | | disease | [address], | TH[address]APY [address] | | | | | with | [address] [place] | [address] | | | | | behavioral | [place], [place] | [place], [place] | | | | | disturbance | [address] | [address] | | | | | (HCC) | Phone: | Phone: | | | | | Memory | [phone] | [phone] | | | | | change | Fax: | Fax: | | | | | | [phone] | [phone] | +--------+ + + + + + Self-referral (Routine) +--------+ + + + + + | Status | Reason | Specialty | Diagnoses / | Referred By | Referred To | | | | | Procedures | Contact | Contact | +--------+ + + + + + | Closed | Specialty | Psychology | Diagnoses | Alejandro, | Charline, | | | Services | | Early onset | Felton Rudolph, | Melquiades Conde, PhD | | | Required | | Alzheimer's | [address] | [address] | | | | | disease | [place] [address], | ST | | | | | with | [address] [place] | [place], [place] | | | | | behavioral | [place], [place] | [address] | | | | | disturbance | [address] | Phone: | | | | | (HCC) | Phone: | [phone] | | | | | Memory | [phone] | Fax: | | | | | change | Fax: | [phone] | | | | | Anxiety and | [phone] | | | | | | depression | | | +--------+ + + + + + Diagnostic/Screening (Routine) +--------+--------+ + + + + | Status | Reason | Specialty | Diagnoses / | Referred By | Referred To | | | | | Procedures | Contact | Contact | +--------+--------+ + + + + | Closed | | Radiology | Diagnoses | Allen, | [facility] | | | | | Early onset | Felton R, | [address] | | | | | Alzheimer's | [address] | [address] | | | | | disease | [address], | [place], [place] | | | | | with | [place] | [address] | | | | | behavioral | [place], [place] | Phone: | | | | | disturbance | [address] | [phone] | | | | | (HCC) | Phone: | Fax: | | | | | Memory | [phone] | [phone] | | | | | change | Fax: | | | | | | Dizziness | [phone] | | | | | | Procedures | | | | | | | MRI Brain w | | | | | | | wo Contrast | | | +--------+--------+ + + + + Reason for Visit + + + | Reason | Comments | + + + | Establish Care | memory issues | + + + Evaluate & Treat (Routine) +--------+--------+ + + + + | Status | Reason | Specialty | Diagnoses / | Referred By | Referred To | | | | | Procedures | Contact | Contact | +--------+--------+ + + + + | Closed | | Neurology | Diagnoses | Abhi, | Alejandro, | | | | | Alzheimer's | Lauren | Felton Rudolph MD | | | | | disease, | CAROL Jeffers | [address] | | | | | unspecified | [address] | [address] | | | | | ([facility]) | Apolinar Gupta | [place] | | | | | | [place], | [address] Phone: | | | | | | [place] | [phone] | | | | | | [address] | Fax: | | | | | | Phone: | [phone] | | | | | | [phone] | | | | | | | Fax: | | | | | | | [phone] | | +--------+--------+ + + + + Encounter Details +--------+---------+ + + + | Date | Type | Department | Care Team | Description | +--------+---------+ + + + | 01/08/ | Office | [place] [facility] | Felton Allen MD | Early onset | | 2019 | Visit | [facility]OSP[facility] | [address] | Alzheimer's disease | | | | CLINIC [address] | [place] | with behavioral | | | | [address] [place], | [address] | disturbance (HCC) | | | | [place] [address] | | (Primary Dx); Memory | | | | [phone] | | change; Dizziness; | | | | | | Anxiety and | | | | | | depression | +--------+---------+ + + + Social History + +-------+ [...] + + documented as of this encounter Last Filed Vital Signs + + + + + | Vital Sign | Reading | Time Taken | Comments | + + + + + | Blood Pressure | 128/78 | 01/08/2019 9:50 AM | | | | | PST | | + + + + + | Pulse | 73 | 01/08/2019 9:50 AM | | | | | PST | | + + + + + | Temperature | - | - | | + + + + + | Respiratory Rate | 20 | 01/08/2019 9:50 AM | | | | | PST | | + + + + + | Oxygen Saturation | 97% | 01/08/2019 9:50 AM | | | | | PST | | + + + + + | Inhaled Oxygen | - | - | | | Concentration | | | | + + + + + | Weight | 60.3 kg (133 lb) | 01/08/2019 9:50 AM | | | | | PST | | + + + + + | Height | 157.5 cm (5' 2") | 01/08/2019 9:50 AM | | | | | PST | | + + + + + | Body Mass Index | 24.33 | 01/08/2019 9:50 AM | | | | | PST | | + + + + + documented in this encounter Patient Instructions Patient Instructions Felton Allen MD - 01/08/2019 10:30 AM PSTFormatting of this note mi ght be different from the original. Patient Instructions [facility] Neurology Clinic Dr. Felton Allen, Neurologist Date:01/08/2019 Name:Ann Rousseau :..1950 Please schedule next follow up appt with Loyda in 4-5 months for Dementia, Alzheimer's t ype, early onset, with behavioral changes, mild to moderate You have the following tests/procedures ordered: Orders Placed This Encounter Procedures MRI Brain w wo Contrast Psychology, External - AMB Referral Speech Therapy, External - AMB Referral EEG NEUROTRAX: COMPUTERIZED NEUROCOGNATIVE TESTING Suggest reading newspapers. magazines, perform word find exercises such as cross word puzz le, and scrabble, other puzzle games like [employer], Mahjong. Play computer/mobile applications such as [employer] and M[employer] GAMES Vit E and Vit B complexes ( 1, 6, and 12) Increase Aricept/donezepil 10 mg at bedtime for cogntive dysfunction Advised to write daily task and activities in a notebook If behavioral issues worsen to call Any Questions please call JANAK Ross or Dr. Allen at [facility] Neurology Clinic Understanding Dementia Dementia is the name for a group of brain conditions that make it harder to remember, reaso n, and communicate. The most common form of dementia is Alzheimer disease. Other types inclu de vascular dementia, frontotemporal dementia, and Lewy body dementia. Years ago, dementia w as often called senility. It was even thought to be a normal part of aging. We now kno w that it s not normal. It s caused by ongoing damage to cells in the brain. Symptoms of dementia Symptoms differ depending on which parts of the brain are affected and the stage of the dis ease. The most common symptoms include: Memory loss, including trouble with directions and familiar tasks Language problems, such as trouble getting words out or understanding what is said Trouble with planning, organizing, concentration, and judgment. This includespeople no t being able to recognize their own symptoms. Changes in behavior and personality How dementia affects the brain The brain controls all the workings of the mind and body. Some parts of the brain control m gisel and language. Other parts control movement and coordination. With dementia, nerve cell s in the brain are gradually damaged or destroyed. Why this happens is not yet clear. But ov er time, parts of the brain begin to shrink (atrophy). This often starts in the part of the brain that controls memory, reasoning, and personality. Other parts of the brain may not be affected until much later in the illness. The stages of dementia Dementia is a progressive disease. This means it gets worse over time. Symptoms differ for each person, but there are 3 basic stages. Each may last from months to years: Early stage. A person may seem forgetful, confused, or have changes in behavior. However , he or she may still be able to handle most tasks without help. Middle stage. More and more help is needed with daily tasks. A person may have trouble r ecognizing friends and family members, wander, or get lost in familiar places. He or she may also become restless or singh. Late stage. Dementia can cause severe problems with memory, judgment, and other skills. Help is needed with nearly every aspect of daily life. Treating dementia Right now, there s no cure for dementia. But with proper care, many people can live comfo rtably for years: Medicines are a prieto part of treatment. Some types can help slow the progression of sympt oms, such as memory loss. Others can help ease mood, behavior, and sleep problems. These med icines work for some people but not all. Activity and exerciseare good for body and mind.They may even help slow the progress ion of the disease. Simple, repetitive activities are good choices. Regular healthcare provider visits help keep track of symptoms and overall health. The sleep-wake cycle can be mixed up in people with dementia. They may function better b eing up at nighttime and sleeping during the daytime. Social interactions are important to maintain. Date Last Reviewed: 04/25/[id number] 1,2,[address] [place] [address], [place] [address]. All righ ts reserved. This information is not intended as a substitute for professional medical care. Always follow your healthcare professional's instructions. For Caregivers: Future Planning for People with Dementia The time will come when your loved one can no longer make sound decisions. So it s best t o plan now for the future. Talk with your loved one about legal and financial matters. You s hould also discuss the types of care he or she wants. Settling these issues now can help santo ssure both of you. Discuss legal and financial issues Legal and financial planning is always a good idea. But it s even more vital when a loved one has dementia. How will finances be handled? Who will pay bills? Talking about these mat ters can be both emotional and complex. So you may wish to seek advice from professionals. T hese include financial planners, insurance agents, estate-planning attorneys, and social wor kers. Durable power of practicing urologist This document transfers financial and legal power from your loved one to you or to some [facility] er person who can make decisions in your loved one s best interest. Advance directives and living galloway These documents spell out the kinds of medical treatment your loved one wants or doesn t want in the future. Keep them with your loved one s medical records. Long-term care expenses Medicare, Medicaid, and private insurers all limit the types of care they will cover. Talk with a nursing home social worker about how long-term care expenses can be handled. Joint accounts Talk with your loved one about becoming a cosigner on his or her financial accounts. This h elps make sure bills are paid and allows you to keep track of spending. Prepare for role changes As your loved one s needs change, so will your role as caregiver. At first, you may only need to help with minor tasks. Later, your loved one may require constant supervision. Plann ing for these changes now can make it easier to cope. Start by talking with family and frien ds. What tasks can they help with? Who will care for your loved one if you become ill? You s derrickdominguez also learn about options for professional care. That way, it s easier to move to the next step when the current situation stops working. Consider caregiving options Talk with a nursing home social worker, doctor, or local support agency about options for care. These ma y include one or more of the following: Adult daycare provides supervised care during the day. Home health aides can be hired part-time, or as live-in caregivers. Assisted living facilities can provide a home and support for people who need moderate a agusto of help. Nursing homes provide constant care. Date Last Reviewed: 08/26/[id number] 1,2,[address] [place] [address], [place] [address]. All righ ts reserved. This information is not intended as a substitute for professional medical care. Always follow your healthcare professional's instructions. Alzheimer Disease Alzheimer disease is a brain illness that can happen usually in older adults, but it can al so happen as early as age 40. It is the most common cause of dementia. It is a progressive d isease. This means it gets worse over time. What is Alzheimer disease? Alzheimer disease causes a series of changes to nerves of the brain. Some nerves form into clumps and tangles, and lose some of their connections to other nerves. Healthcare providersdon t fully understand what causes Alzheimer disease. But they thin k these may be some of the causes: Age and family history Certain genes Abnormal protein deposits in the brain Environmental factors Problems with a person s immune system Possibly infections Symptoms of Alzheimer disease The disease causes changes in behavior and thinking known as dementia. The symptoms include : Memory loss Confusion Restlessness Personality and behavior changes Problems with judgment Problems communicating with others Inability to follow directions Lack of emotion Diagnosing Alzheimer disease No single test is able to diagnose Alzheimer disease. Instead healthcare providers use a se makenzie of tests to rule out other health conditions. The tests may include: A complete medical history.This may include questions about overall health and past he alth problems. The healthcare provider may ask how well the person can do daily tasks. [facility] provider may ask family or close friends about any changes in behavior or personal ity. Mental status test. This is a test of memory, problem solving, attention, counting, and language. Standard medical tests.These may include blood and urine tests to find possible causes for the problem. Brain imaging tests. CT, MRI, or positron emission tomography (PET) may be used to rul e out other causes of the problem. Treating Alzheimer disease Alzheimer disease has no cure. Instead healthcare providers can help ease some symptoms. Th is can make a person with Alzheimer more comfortable. Treatment can also make it easier for their caregivers to take care of them. Some medicines may help slow the decline of a person s memory, thinking, and language ski lls. They may help with problems of behavior, such as aggression. They can lessen hallucinat ions and delusions. These medicines can work for some but not all people. And they may help for only a limited time. Medicines include: Cholinesterase inhibitors Donepezil Galantamine Rivastigmine Memantine In some cases, behavior problems can be caused by medicine side effects. Talk with the pers on s healthcare provider about all medicines he or she is taking. Keeping healthy For a person with Alzheimer, it s important to stay healthy. Good nutrition and physical and social activity are vital. A calm and well-structured environment will help. Make sure t o keep up with healthcare appointments and managing other health conditions, such as diabete s. Some people benefit from having a filler room attendant help to prevent weight loss. Caring for someone with Alzheimer A person with Alzheimer will need more caregiving over time. Talk with your healthcare prov ider about caregiving resources. Date Last Reviewed: 05/26/201719998695-8983 1,2,[address] [place] [address], [place] [address]. All righ ts reserved. This information is not intended as a substitute for professional medical care. Always follow your healthcare professional's instructions. Alzheimer's Dementia and Caregiver Support Alzheimer's dementia (AD) is a chronic, progressive condition that affects the brain. It ca uses a gradual loss of memory and higher intellectual functions.A person with AD may have trouble recognizing familiar people and places, or knowing what day it is. The person s me arin, judgment, and decision-making may also be affected. In severe cases, the person may no t respond when someone talks to him or her. AD is the most common form of dementia. Doctors don t fully understand what causes AD. It has no cure. But medicines can treat some of the symptoms. Home care These tips can help you care for a person with AD at home: A responsible person must be with someone who has advanced AD at all times. He or she should not be left alone or unsupervised. In the case of advanced AD, keep all medicines in a secure place. They should be under t he caregiver s control. A person with advanced AD should not be allowed to take his or her own medicines. This needs to be supervised by the caregiver. Here are ways to help a person with dementia: Activities Keep to a daily routine. Changes in routine can cause stress for someone with dementia. Joni e a schedule for common daily tasks. These include bathing, dressing, taking medicines, eati ng meals, going for walks, and going to bed. Communication When talking to a person with dementia, talk slowly and clearly. Use a gentle tone of voice . Choose short, simple words and sentences. Ask one question at a time. Don t interrupt, c riticize, or argue. Be calm and supportive. Use friendly facial expressions. Use pointing an d touching to help communicate. If the person has a loss of long-term memory, don t ask qu estions about past events. Instead, talk about what is happening now. Behavioral tips Use lists, signs, family photos, clocks, and calendars as memory aids. Label cabinets and d rawers. Try to distract, not confront, the person. When he or she becomes frustrated or upse t, direct the person s attention to eating or some other interesting activity. Medical-legal tips Talk with your doctor or data input clerk about getting a power of practicing urologist for healthcare and for fi nancial decisions. It is best to do this while the person can still sign legal documents and make his or her own legal decisions. Otherwise, you'll need a court order. Support for the caregiver As the caregiver, you will need a lot of support for yourself. Caring for a person with dem entia is a full-time job. It can drain your emotions and lead to frustration and anger towar d the one you love. It is common to have feelings of grief over losing the relationship that you once had. As a caregiver to someone with dementia, you are at higher risk for depressio n, anxiety and stress. Here are some tips to help you cope with being a caregiver: Learn about dementia and Alzheimer s disease so you know what to expect. Find out about the resources in your community, including adult day-care programs. Ask y our healthcare provider for a referral to a nursing home social worker, if needed. Take care of yourself with a healthy diet, exercise, and plenty of rest. Ask for help. Share some of the caretaking duties with family and friends. Make personal time for yourself. This is essential! Consider hiring an in-home sitter or home health aide. Seek counseling or join a caregiver s support group. Don't isolate yourself or try to cope with this alone. In a support group, you can learn from others in a similar situation. Visit the Alzheimer s Association website (www.alz.org) for more information. Follow-up care Follow up with the person s healthcare provider, or as advised. When to seek medical advice Call your loved-one's healthcare provider right away if any of these occur: Frequent falls The person refuses to eat or drink Violent behavior or behavior becomes too difficult to manage at home Increased drowsiness, or failure to respond normally Headache or nausea that gets worse, or repeated vomiting Numbness or weakness of the face, an arm, or a leg Slurred speech, trouble speaking, walking, or seeing Fainting spell, dizziness, or seizure Unexplained fever of 100.4 F (38.0 C) or higher Seizure like activity (twitching, staring episodes, lip smacking, sudden periods of wors ening confusion) Date Last Reviewed: 09/26/201519991693-5645 [employer]. [address] [place] [address], [place] [address]. All righ ts reserved. This information is not intended as a substitute for professional medical care. Always follow your healthcare professional's instructions. documented in this encounter Progress Notes Felton Allen MD - 01/08/2019 10:30 AM PST Patient: Ann Rousseau Medical Record: [id number] Date of Services: 01/08/2019 Referring Doctor: CAROL Dumont Chief Complaint: Memory loss History of Present Illness: Miss Rousseau was a 68-year-old right-handed lady, seen for neurologic evaluation, complai suma of five-year history of memory loss which has been worsening for the past year, seen wi th her daughter Tegan. Patient has been forgetting certain events and conversations with dev elopment of easy irritability. 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 She now write things down for her memory to improve and according to her daughter Tegan, has gotten lost when she drives at a town. However, within [place] vicinity, she has no diff iculties. She had a CT scan of that no contrast performance September 02, 2017 demonstrating atrophy with c hronic periventricular white matter changes. In addition, she she complains of intermittent dizziness Lasting from a few seconds to ab out less than 30 minutes with occasional gait instability with no evidence of headaches, dip lopia , blurring of vision, dysphagia and aphasia, urinary or incontinence , and syncope. S he has significant history of coronary disease with stent placement performed many years ago . Further investigate performed through any evidence of brainstem dysfunction/vertebrobasil ar insufficiency. Past Medical History: Diagnosis Date Coronary artery disease Depression Hyperlipidemia Hypertension Old myocardial infarction NSTEMI x 2 - 06/30/07 - Ramus intermedius // 11/25/07 (ISR in RCA) Osteoarthritis of both knees Osteoporosis Presence of drug-eluting stent in right coronary artery 11/25/07 - for NSTEMI, ISR: 3.0x20 Taxus ELOISA; 07/08/07 - 3 overlapping Cypher ELOISA (3.0x13, 2.5x28, 2.5x28) PVD (peripheral vascular disease) (HCC) by exam, no palpable DP/PT pulses S/P drug eluting coronary stent placement 06/30/2007 primary PCI for NSTEMI, 3.0x23 Cypher ELOISA in Ramus Intermedius Sinusitis Social History Socioeconomic History Marital status: Spouse name: Not on file Number of children: Not on file Years of education: Not on file Highest education level: Not on file Occupational History Not on file Social Needs Financial resource strain: Not on file Food insecurity: Worry: Not on file Inability: Not on file Transportation needs: Medical: Not on file Non-medical: Not on file Tobacco Use Smoking status: Former Smoker Packs/day: 0.25 Last attempt to quit: 12/08/2016 Years since quittin.0 Smokeless tobacco: Never Used Tobacco comment: in college Substance and Sexual Activity Alcohol use: Never Comment: Alcoholic Drinks/day: rarely Drug use: Never Comment: Drug use: No Sexual activity: Not on file Lifestyle Physical activity: Days per week: 2 days Minutes per session: 10 min Stress: Rather much Relationships Social connections: Talks on phone: Not on file Gets together: Not on file Attends sikhism service: Not on file Active member of club or organization: Not on file Attends meetings of clubs or organizations: Not on file Relationship status: Not on file Intimate partner violence: Fear of current or ex partner: Not on file Emotionally abused: Not on file Physically abused: Not on file Forced sexual activity: Not on file Other Topics Concern Not on file Social History Narrative Not on file Family History Adopted: Yes Problem Relation Age of Onset Drug abuse Brother Review of Systems: Denies headache, earache, nasal catarrh, diplopia, blurring of vision, d ysphagia, odynophagia, sore throat, neck masses, hearing loss, chest pain, palpitations, abhinav rtness of breath, cough, hemoptysis, abdominal pain, diarrhea, constipation, bowel or bladde r dysfunction, hematuria, dysuria, lymphadenopathies, echhymoses, rashes, gait ataxia, and h omicidal or suicidal ideations. Current Outpatient Medications Medication Sig Dispense Refill aspirin 325 mg tablet Take 325 mg by mouth 2 (two) times daily. atorvaSTATin (LIPITOR) 20 mg tablet Take 20 mg by mouth nightly. donepezil (ARICEPT) 10 MG tablet Take 0.5 tablets by mouth nightly for 30 days. 30 tabl et 5 metoprolol tartrate (LOPRESSOR) 50 mg tablet Take 50 mg by mouth 2 (two) times daily. 3 -4 x per week mirtazapine (REMERON) 15 MG tablet Take 15 mg by mouth nightly. VITAMIN D, CHOLECALCIFEROL, PO Take by mouth. No current facility-administered medications for this visit. No Known Allergies Labs & Diagnostics: No results found for this or any previous visit (from the past 24 hour(s)). No results found. Neurological Examination: Vitals: 01/08/19 0950 BP: 128/78 Pulse: 73 Resp: 20 PainSc: 0 - No pain MENTAL STATUS: The patient is awake, alert, and oriented to place, and person, knows tian h and year but not the exact day . Speech is fluent. able to repeat, able to name simple o bjects, MMSE 26/30, seen with daughter Tegan CRANIAL NERVES: Funduscopy revealed distinct disc margins. There are no exudates or hemor rhages noted. Pupils are 3-4 mm, equal and reactive to light and accommodation. Extraocular muscle movements are intact. There are no visual field cuts. There is no nystagmus. There is no facial asymmetry. Facial sensation is intact. Palate elevates symmetrically. Streng th in the trapezius and sternocleidomastoid muscles is normal. Tongue is midline on protrusi on. MOTOR EXAMINATION: Strength is 5/5 throughout. Tone is normal. SENSORY EXAMINATION: Intact to light touch, pin prick, vibration, and proprioception. The re is no extinction on double simultaneous stimulation. DEEP TENDON REFLEXES: 2+ and symmetric. PLANTAR RESPONSES: Downgoing bilaterally GAIT: wide-based stance, mild difficulty in tandem gait, Romberg was negative CEREBELLAR E XAMINATION: There is no dysmetria on yajxwt-ot-dzjo test. MISCELLANEOUS EXAM: Well kept, well nourished, Atraumatic, no evidence of frontal or maxil amanda sinus tenderness, no neck masses,abdomen is soft and nontender, extremities equally pal pable pulses: Mild right knee pain Clinical Impression: Dementia, Alzheimer's type, early onset, with behavioral changes, mild to moderate Recurrent dizziness rule out vertebrobasilar insufficiency versus auditory pathology, not e vident on examination Plan: Please schedule next follow up appt with Loyda in 4-5 months for Dementia, Alzheimer's t ype, early onset, with behavioral changes, mild to moderate You have the following tests/procedures ordered: Orders Placed This Encounter Procedures MRI Brain w wo Contrast Psychology, External - AMB Referral Speech Therapy, External - AMB Referral EEG NEUROTRAX: COMPUTERIZED NEUROCOGNATIVE TESTING Suggest reading newspapers. magazines, perform word find exercises such as cross word puzz le, and scrabble, other puzzle games like [employer], beModel. Play computer/mobile applications such as [employer] and [employer] Vit E and Vit B complexes ( 1, 6, and 12) Increase Aricept/donezepil 10 mg at bedtime for cogntive dysfunction Advised to write daily task and activities in a notebook Advised to continue aspirin daily for stroke prophylaxis and atorvastatin 20 mg daily pendi ng workup Any Questions please call JANAK Ross or Dr. Allen at [facility] Neurology Clinic Felton Allen MD01/08/201910:51 AM Electronically signed NOTE: Part of this report was transcribed using voice recognition software. Every effort was made to ensure accuracy. However, inadvertent computerize lead software architect errors may be present documented in this encounter Plan of Treatment +--------+---------+ + + + | Date | Type | Specialty | Care Team | Description | +--------+---------+ + + + | 01/04/ | Office | Neurology | Rosa Maria, | | | 2019 | Visit | | [address] | | | | | | [address] [facility] [place], | | | | | | [place] [address] | | | | | | [phone] | | | | | | | | +--------+---------+ + + + + + +--------+ + + | Name | Type | Priori | Associated Diagnoses | Order Schedule | | | | ty | | | + + +--------+ + + | Psychology, External | Outpatient | Routin | Early onset | Ordered: 01/08/2019 | | - AMB Referral | Referral | e | Alzheimer's disease | | | | | | with behavioral | | | | | | disturbance (HCC) | | | | | | Memory change | | | | | | Anxiety and | | | | | | depression | | + + +--------+ + + | Speech Therapy, | Outpatient | Routin | Early onset | Ordered: 01/08/2019 | | External - AMB | Referral | e | Alzheimer's disease | | | Referral | | | with behavioral | | | | | | disturbance (HCC) | | | | | | Memory change | | + + +--------+ + + documented as of this encounter Results EEG (01/27/2019 1:00 PM [...] Electronically signed | | + + + NEUROTRAX: COMPUTERIZED NEUROCOGNATIVE TESTING (01/27/2019 10:30 AM [...] computer | | | applications such as [employer] and [employer] games online. Advised to | | | take [...] | Neurologist | | + + + MRI Brain w wo Contrast (01/27/2019 9:34 [...] disease and vasculitis.Dictated by: Gabo | | Lianaam | |No abnormal enhancement. | |Basilar cisterns [...] onset Alzheimer's disease with behavioral disturbance (HCC) - Primary | + + | Memory change Memory loss | + + | Dizziness Dizziness and giddiness | + + | Anxiety and depression Dysthymic disorder | + + documented in this encounter
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
--- OUTSIDE RECORDS SUMMARY | ~2019-11-23 | XMS | Encounter Summary ---
Demographics + + + | Address | [address] | | | [place] [address] | + + + | Home Phone | | + + + | Preferred Language | Unknown | + + + | Marital Status | | + + + | Taoist Affiliation | 1041 | + + + | Race | White | + + + | Ethnic Group | Not or | + + + Author + + + | Author | [facility] | | | and [place] | + + + | Organization | [facility] | | | [...] [place] | | | | | [address] | | + + + + + | Tegan Lim | ECON | [place] | | | | | [address] | | + + + + + Care Team Providers + +------+ + | Care Toll Ticket Clerk Name | Role | Phone | + +------+ + PCP | Unavailable | + +------+ + Encounter Details +--------+ + + + + | Date | Type | Department | Care Team | Description | +--------+ + + + + | 11/24/ | Hospital | [facility] | Ino Vargaseen | [facility], Init | | 2007 - | Encounter | [facility] | [address] | [facility] | | | | CARE FLOOR [address] | [address] [place], [place] | | | 11/26/ | | [address] | [address] | | | 2007 | | [place], [place] | | | | | | [address] | | | | | | [phone] | | | +--------+ + + + [...] | | | | | | [place] [address] | | | | | | [phone] | | | | | | | | +--------+---------+ + + + documented as of this encounter Visit Diagnoses + + | Diagnosis | + + | Acute myocardial infarction, subendocardial infarction, initial episode of care (HCC) | | Acute myocardial infarction, subendocardial infarction, initial episode of care | + + documented in this encounter"
--- OUTSIDE RECORDS SUMMARY | ~2019-11-23 | XMS | Encounter Summary ---
Demographics + + + | Address | [address] | | | [place] [address] | + + + | Home Phone | | + + + | Preferred Language | Unknown | + + + | Marital Status | | + + + | Anabaptism Affiliation | 1041 | + + + | Race | White | + + + | Ethnic Group | Not or | + + + Author + + + | Author | [facility] | | | and [place] | + + + | Organization | [facility] | | [...] [place] | | | | | [address] | | + + + + + | Tegan Lim | ECON | [place] | | | | | [address] | | + + + + + Care Team Providers + +------+ + | Care Ironworker Wire Fence Erector Name | Role | Phone | + +------+ + | Lauren Moe | PCP | | | PA | | | + +------+ + Reason for Visit + +--------+ + | Reason | Onset | Comments | | | Date | | + +--------+ + | Medication Question | 07/22/ | | | | 2019 | | + +--------+ + Encounter Details +--------+ + + + + | Date | Type | Department | Care Team | Description | +--------+ + + + + | 07/22/ | Telephone | [facility] | Felton Allen MD | Medication Question | | 2019 | | HOSPITAL NEUROLOGY | [address] | | | | | CLIN[facility] [address] | [place] | | | | | [address] [place], | [address] | | | | | [place] [address] | | | | | | [phone] | | | +--------+ + + + [...] this encounter Miscellaneous Notes Telephone Encounter - Carlie Link CC CMA - 07/23/2019 3:10 PM PDTI have pended Rx for 1 tab [facility], [facility]. Please review and advise if ok? MONICA Pan CMA eleerin Pike Eli Cameron - 07/23/2019 2:[address] Allen prescribed the Aricept the patient was suppose to take 1/2 tablet daily. The patient's PCP told her to take a whole t ablet daily so now the patient is going to run out and cannot fill the prescription because it is too early. docum ented in this encounter Plan of Treatment +--------+---------+ + + + | Date | Type | Specialty | Care Team | Description | +--------+---------+ + + + | 01/04/ | Office | Neurology | Rosa Maria, | | 2019 | Visit | | [address] | | | | | | [address]TH [facility], | | | | | | [place] [address] | | | | | | [phone] | | | | | | | | +--------+---------+ + + + documented as of this encounter Visit Diagnoses + + | Diagnosis | + + | Early onset Alzheimer's disease with behavioral disturbance (HCC) - Primary | + + documented in this encounter"
--- OUTSIDE RECORDS SUMMARY | ~2019-11-23 | XMS | Encounter Summary ---
Demographics + + + | Address | [address] | | | [place] [address] | + + + | Home Phone | | + + + | Preferred Language | Unknown | + + + | Marital Status | | + + + | Restorationist Affiliation | 1041 | + + + | Race | White | + + + | Ethnic Group | Not or | + + + Author + + + | Author | [facility] | | | and [place] | + + + | Organization | [facility] | | [...] [place] | | | | | [address] | | + + + + + | Tegan Lim | ECON | [place] | | | | | [address] | | + + + + + Care Team Providers + +------+ + | Care Truck Hopper Name | Role | Phone | + +------+ + | Lauren Moe | PCP | | | [place] | | | + +------+ + Encounter Details +--------+ + + + + | Date | Type | Department | Care Team | Description | +--------+ + + + + | 01/08/ | Telephone | [facility] | Felton Allen MD | | | 2019 | | [facility] [address] | [address] | | | | | [place] | [place] | | | | | [place] | [address] | | | | | [address] | | | | | | [phone] | | | +--------+ + + + [...] this encounter Miscellaneous Notes Telephone Encounter - Sarita Watkins - 01/08/2019 1:54 PM PSTDr Allen, Pt will need a creat/bun to go with the MRI , due to pt being over the age of 61. Need to c heck the kidney function before giving IV contrast. Thank you Sarita Radiology x [phone] documented in this encounter Plan of Treatment +--------+---------+ + + + | Date | Type | Specialty | Care Team | Description | +--------+---------+ + + + | 01/04/ | Office | Neurology | Rosa Maria, | | | 2019 | Visit | | [address] | | | | | | [address] [place], | | | | | | [place] [address] | | | | | | [phone] | | | | | | | | +--------+---------+ + + + documented as of this encounter Visit Diagnoses Not on filedocumented in this encounter"
[~2019-11-23 09:57] MED LIST changes: +COUMADIN4 MG PO; +ENDOCET 10-3251 EACH PO; +MOBIC15 MG PO; +MORPHINE SULFAT15 MG PO; +VISTARIL25 MG PO
[2019-11-23] MEDS ORDERED: DONEPEZIL HCL10 MG PO (10:36)
[2019-11-23] MEDS ORDERED: MIRTAZAPINE30 MG PO (10:36)
[2019-11-23] MEDS ORDERED: METOPROLOL SUCC50 MG PO (10:36)
[2019-11-23] MEDS ORDERED: ATORVASTATIN CA20 MG PO (10:37)
[2019-11-23] MEDS ORDERED: MORPHINE SULFAT15 MG PO (11:03)
[2019-11-23] MEDS ORDERED: ZOFRAN4 MG PO (11:03)
== END 2019-11-23 12:13 | disposition home or self-care (01) ==
LOC: ED 09:57
DX: S42.291A Other displaced fracture of upper end of right humerus, initial encounter for closed fracture (principal); W19.XXXA Unspecified fall, initial encounter; Z87.891 Personal history of nicotine dependence; Z88.0 Allergy status to penicillin; Z79.899 Other long term (current) drug therapy
CPT/HCPCS: 73030; 99283-25

== ENCOUNTER 2020-01-31 13:33 | Emergency (ER) | payer MEDICARE ==
[~2020-01-31] VITALS: Ht 157.5 cm; Wt 61.2 kg
[~2020-01-31 13:33] MED LIST changes: +ATORVASTATIN CA20 MG PO; +DONEPEZIL HCL10 MG PO; +METOPROLOL SUCC50 MG PO; +MIRTAZAPINE30 MG PO; +ZOFRAN4 MG PO
--- OUTSIDE RECORDS SUMMARY | 2020-01-31 13:36 | XMS ---
PreManage Notification: EDITH PRIETO Security Account Manager Events No recent Security Events currently on file [facility] There are no care providers on record at this time. [place] has no Care Guidelines for this patient. Sharon VISIT COUNT (12 MO.) 2 HENRIQUE Dai TOTAL 2 NOTE: Visits indicate total known visits. ED/UCC VISIT TRACKING (12 MO.) 01/31/2020 13:33 HENRIQUE Tavares [place] TYPE: Emergency COMPLAINT: - FALL 11/23/2019 09:58 HENRIQUE [facility]ava[facility] [place] TYPE: Emergency COMPLAINT: - FALL, RIGHT SHOULDE PAIN DIAGNOSES: - Pain in right shoulder - Unspecified fall, initial encounter - Personal history of nicotine dependence - Other displaced fracture of upper end of right humerus, initial encounter for closed fracture - Allergy status to penicillin - Other patient financial coordinator (current) drug therapy INPATIENT VISIT TRACKING (12 MO.) No inpatient visits to display in this time frame [email or web address]
[2020-01-31] MEDS ORDERED: NORCO 5-325 TA1 EACH PO (14:10)
== END 2020-01-31 14:57 | disposition home or self-care (01) ==
LOC: ED 13:33
DX: S82.032A Displaced transverse fracture of left patella, initial encounter for closed fracture (principal); W01.198A Fall on same level from slipping, tripping and stumbling with subsequent striking against other object, initial encounter; Z87.891 Personal history of nicotine dependence; Z88.0 Allergy status to penicillin; Z79.899 Other long term (current) drug therapy
CPT/HCPCS: 73560; 96374; 96375; 99283-25; J2270; J2405

== ENCOUNTER 2020-02-05 05:59 | Day surgery (SDC) | payer MEDICARE ==
[~2020-02-05] VITALS: Ht 157.5 cm; Wt 63.6 kg
[~2020-02-05 05:59] MED LIST changes: +NORCO 5-325 TA1 EACH PO
--- NOTE | 2020-02-05 06:31 | NUR ---
PT WAS SWABBED FOR COVID 19 FULL PPE DONNED SAMPLE SENT TO LAB
--- NOTE | 2020-02-05 09:49 | NUR ---
PT ALERT, ORIENTED AND SEEMED TO BE WAITING FOR ME. PT SOON BEGAN TO TELL ME HER STORY, WITH TEARS. HAS HIGH HOPES THAT THIS SURGERY WILL RESTORE SOME OF THE LIVING SHE FEELS SHE HAS BEEN MISSING OUT ON[address](NOT BY HER OWN CHOOSING). COVID HAS MADE HER FEEL EVEN MORE ISOLATED. GAVE COMFORT, SUPPORT AND ENCOURAGEMENT. RONA ARRIVED, PLEASANT OUTLINED THE DAY. REQUEST BY PT FOR PRAYER, DR MARTIN IN. WILL FOLLOW
--- NOTE | 2020-02-05 10:48 | NUR ---
02/05/20 1048 Samanta Crowe 1041- PT TO PACU IN SUPINE POSITION. EYES CLOSED. DOES NOT RESPOND TO VERBAL STIMULI. BREATHING EASY AND UNLABORED. SPO2 >95% ON 6 L O2 VIA SIMPLE MASK. REPORT RECEIVED FROM SCHEDULING REPRESENTATIVE AND ROLL SCALE MAN. CMS TO RLE INTACT. 1047- PT RESPONDS TO TACTILE AND VERBAL STIMULI. PT KEEPS EYES CLOSED BUT IS ABLE TO FOLLOW COMMANDS. PT IS TELLING STORIES WITH EYES CLOSED AND FREQUENTLY MUMBLES. BREATHING EASY AND UNLABORED. SPO2 >95% ON 6L O2 VIA SIMPLE MASK.
[2020-02-05] MEDS ORDERED: HYDROCODON-ACE1 EA11 PO (10:52)
--- NOTE | 2020-02-05 11:25 | NUR ---
PATIENT TO DAYSURGERY FROM PACU, BEDSIDE REPORT FROM TONEY BRICENO. PATIENT APPEARED TEARFUL AND ANXIOUS ONCE BACK TO ROOM. REPORTS NO PAIN, BUT KEEPS PULLING AT CRYO CUFF. LOOSENED THE CRYO CUFF. PATIENT AWAKE, PROVIDED CRACKERS AND ICE WATER. DRESSING CLEAN DRY AND INTACT. STRONG PEDAL PULSE, WARM TOES. CALL LIGHT WITHIN REACH.
--- NOTE | 2020-02-05 12:30 | NUR ---
PROVIDED PATIENT WITH PAIN MEDICAITON PER MAR. PATIENT UP TO BSC, TOE TOUCH. PATIENT ABLE TO DEMONSTRATE WITH WALKER ABILITY TO TOE TOUCH. NEEDS TO BE CUED AND REMINDED TO CONTINUE TO TOE TOUCH, PATIENT STATES " I JUST FEEL A LITTLE RINGY FROM ALL THE MEDICATIONS". REPORTED PATIENT SHOWING SIGNS OF EARLY DEMENTIA. ASSISTED PATIENT WITH DRESSING SELF WITH CLOTHES.
--- NOTE | 2020-02-05 14:28 | NUR ---
PROVIDED PATIENT AND DISCHARGE EDUCATION. ANSWERED QUESTIONS AND CONCERNS. PATIENT TRANSFERED INTO CAR WELL, USING TOE TOUCH TECHNIQUE. PATIENT LEFT WITH CRYO AND OTHER PATIENT BELONGINGS.
--- NOTE | 2020-02-08 07:06 | OR ---
[facility] [address], [place] [address] Signed DATE OF OPERATION: 02/05/2020 SURGEON: Gerardo Hernandez MD PREOPERATIVE DIAGNOSIS: Left inferior pole patella fracture. POSTOPERATIVE DIAGNOSIS: Left inferior pole patella fracture. PROCEDURE PERFORMED: Open reduction and internal fixation, left patella. STREETCAR OPERATOR: None. ANESTHESIA: General. TOURNIQUET TIME: About 40 minutes. IMPLANTS: A #5 FiberWire and 4 SwiveLock anchors. BRIEF HISTORY: Ann is a 70-year-old female who suffered a ground level fall fracturing the inferior pole of her patella, which was fairly comminuted. The fracture was widely diastasis. She was unable to attain or maintain the straight leg raise. Risks and benefits of operative treatment were discussed with her. She elected to proceed. DESCRIPTION OF PROCEDURE: Once consent was obtained, she was taken to the operating room after adequate anesthesia. She was placed on operating room table, all downside pressure points were well padded. The left leg was prepped and draped in a standard sterile fashion up to a well-padded proximal thigh tourniquet. The leg was exsanguinated using Esmarch bandage. Tourniquet inflated to 250 mmHg. Standard anterior and longitudinal incision was taken through skin and subcutaneous tissue. The skin flaps were elevated medially and laterally to allow visualization of the fracture. Both medial and lateral retinacula were torn. Both fracture ends were distracted and cleaned of clot and debris. There Electronically Signed By: GERARDO HERNANDEZ MD 02/08/20 0706 PATIENT NAME: ANN PRIETO OPERATIVE REPORT DATE OF : 52 REPORT #: [id number] PHYSICIAN: GERARDO HERNANDEZ MD PCP: DARLENE FLETCHER PA-C REPORT IS CONFIDENTIAL AND NOT TO BE RELEASED WITHOUT AUTHORIZATION [facility] [address], [place] [address] Signed were then back together. There was enough of the inferior pole of the patella remaining to go ahead and perform an ORIF using FiberTape. There was not enough that I thought we could do a standard wiring technique. We then placed 2 FiberTape sutures using standard Krackow methods through both sides of the patellar tendon all the way down. Three drill holes were placed in the patella coming out proximally. The 4 sutures were then placed through this. The drill hole was then brought out superiorly. The fracture was then reduced and held, checked with the image intensifier and then these sutures were tied over the top of the patella. The reduction was good. We could take her to 90 degrees of flexion without significant distraction. We then because of the poor quality of the tissue elected to protect this with a FiberTape bridge technique. Two 4.75 SwiveLock anchors were then placed on the medial and lateral sides of the patella with FiberTape in them. Then the knee was taken to 45 degrees and the patellar tendon was tensioned appropriately and two anchors were placed in the tibia with the other end of the FiberTape creating a suture bridge technique. All suture ends were then cut, again her knee was taken to 90 degrees of motion with no distraction at the fracture site. The wound was copiously irrigated with normal saline. The medial and lateral retinaculum were closed using #2 FiberWire. The subcutaneous tissue was closed using #1 Vicryl. The skin was closed with marisabel and the wound was dressed with an Acticoat silver dressing followed by a bulky Dixon dressing. She tolerated the procedure well. All sponge, needle, and instrument counts were correct. Gerardo Hernandez MD BA/MODL /[id number] Copies: ~ Electronically Signed By: GERARDO HERNANDEZ MD 02/08/20 0706 PATIENT NAME: ANN PRIETO OPERATIVE REPORT DATE OF : 52 REPORT #: [id number] PHYSICIAN: GERARDO HERNANDEZ MD PCP: DRALENE FLETCHER PA-C REPORT IS CONFIDENTIAL AND NOT TO BE RELEASED WITHOUT AUTHORIZATION
== END 2020-02-05 13:00 | disposition home or self-care (01) ==
LOC: DS 05:59
PROVIDERS: ATTEND Specialist
PROC: 0QSF04Z Reposition Left Patella with Internal Fixation Device, Open Approach (ICD-10-PCS; principal; 2020-02-05 10:15)
DX: S82.042A Displaced comminuted fracture of left patella, initial encounter for closed fracture (principal); G89.18 Other acute postprocedural pain; W18.39XA Other fall on same level, initial encounter
CPT/HCPCS: 01392; 64447; 73560; 76942; A9270; C1713; C9803; J0690; J1100; J1885; J2001; J2250; J2704; J2795; J3010; J7121; U0003

== ENCOUNTER 2022-02-20 15:11 | Emergency (ER) | payer MEDICARE ==
[~2022-02-20] VITALS: Ht 157.5 cm; Wt 63.5 kg
[~2022-02-20 15:11] MED LIST changes: +HYDROCODON-ACE1 EA11 PO
[2022-02-20] MEDS ORDERED: DONEPEZIL HCL23 MG PO (15:58)
[2022-02-20] MEDS ORDERED: MEMANTINE HCL5 MG PO (15:58)
--- NOTE | 2022-02-20 20:48 | EKG ---
[facility] [address] [facility] [place], [place] [address] Signed Normal sinus rhythm Normal ECG When compared with ECG of 03-FEB-2020 15:05, No significant change was found Confirmed by ARISTEO SCHMIDT MD ([id number]) on 02/20/2022 8:47:53 PM Electronically Signed By: ARISTEO SCHMIDT MD 02/20/222047 PATIENT NAME: ELODIA PRIETOMichael Rudolph Electrocardiogram DATE OF : 52 PHYSICIAN: ARISTEO SCHMIDT MD REPORT #: [id number] REPORT IS CONFIDENTIAL AND NOT TO BE RELEASED WITHOUT AUTHORIZATION
== END 2022-02-20 20:22 | disposition home or self-care (01) ==
LOC: ED 15:11
DX: R07.89 Other chest pain (principal); I25.10 Atherosclerotic heart disease of native coronary artery without angina pectoris; F17.200 Nicotine dependence, unspecified, uncomplicated; Z88.0 Allergy status to penicillin; Z79.899 Other long term (current) drug therapy
CPT/HCPCS: 36415; 71045; 80053; 84484; 85025; 93005; 93010; 99285-25

== ENCOUNTER 2022-04-28 05:38 | Emergency (ER) | payer OTHER, MEDICARE ==
[~2022-04-28] VITALS: Ht 157.5 cm; Wt 66.5 kg
[~2022-04-28 05:38] MED LIST changes: +DONEPEZIL HCL23 MG PO; +MEMANTINE HCL5 MG PO
[2022-04-28] MEDS ORDERED: NITROGLYCERIN0.4 MG SL (05:53)
[2022-04-28] MEDS ORDERED: ASPIRIN81 MG PO (05:54)
== END 2022-04-28 08:08 | disposition home or self-care (01) ==
LOC: ED 05:38
DX: S22.32XA Fracture of one rib, left side, initial encounter for closed fracture (principal); W01.0XXA Fall on same level from slipping, tripping and stumbling without subsequent striking against object, initial encounter; F17.200 Nicotine dependence, unspecified, uncomplicated; Z88.0 Allergy status to penicillin; Z79.899 Other long term (current) drug therapy; Z79.82 Long term (current) use of aspirin
CPT/HCPCS: 36415; 71045; 74177; 80053; 85025; 85610; 85730; A9270; J1170; J2405; Q9967